=== PATIENT | male | born 1940 | race Caucasian/White ===

== ENCOUNTER 2018-07-21 19:42 | Emergency (ER) | payer MEDICARE, OTHER ==
[~2018-07-21] VITALS: Ht 180.3 cm; Wt 79.4 kg
[2018-07-21] MEDS ORDERED: CALCIUM 500 +1 EAC5 PO (19:50)
[2018-07-21] MEDS ORDERED: ASPIR 8181 MG PO (19:50)
[2018-07-21] MEDS ORDERED: FISH OIL 1,001000 M2 PO (19:50)
[2018-07-21] MEDS ORDERED: UNICOMPLEX M TA1 TA1 PO (19:51)
[2018-07-21 21:03] VITALS: BP 145/77
== END 2018-07-21 21:03 | disposition home or self-care (01) ==
LOC: M.ERS 19:42
DX: R04.0 Epistaxis (principal); Z98.890 Other specified postprocedural states

== ENCOUNTER 2018-07-25 08:29 | Emergency (ER) | payer MEDICARE, OTHER ==
[~2018-07-25] VITALS: Ht 180.3 cm; Wt 79.4 kg
[~2018-07-25 08:29] MED LIST: ASPIR 8181 MG PO; CALCIUM 500 +1 EAC5 PO; FISH OIL 1,001000 M2 PO; UNICOMPLEX M TA1 TA1 PO
[2018-07-25 08:46] VITALS: BP 144/99
== END 2018-07-25 09:26 | disposition home or self-care (01) ==
LOC: M.ERS 08:29
DX: R04.0 Epistaxis (principal); Z98.890 Other specified postprocedural states

== ENCOUNTER 2019-09-06 16:49 | Inpatient (IN) | payer MEDICARE, OTHER ==
[~2019-09-06] VITALS: Ht 180.3 cm; Wt 77.6 kg
[2019-09-06 16:50] VITALS: BP 145/77
[2019-09-06 17:29] LABS: HEMATOCRIT 42.1 % (42.0-52.0); HEMOGLOBIN 14.1 gm/dL (14.0-18.0); MCH 29.6 pg (26.0-34.0); MCHC 33.4 g/dL (28.0-37.0); MCV 88.4 fL (80.0-100.0); MPV 8.4 fl. (7.2-11.1); NUCLEATED RBCS 0 /100WBC; PLATELET COUNT* 194 thou/uL (150-400); RBC 4.76 mil/uL (4.50-6.00); RDW-CV 12.8 % (10.5-14.5); WBC 9.2 thou/uL (4.0-11.0)
[2019-09-06 17:42] LABS: CALCIUM 8.4 mg/dL (8.5-10.1); POTASSIUM 4.1 mmol/L (3.5-5.1)
[2019-09-06 17:43] LABS: APTT 25.5 Seconds (25.0-31.3)
[2019-09-06 17:53] LABS: ALBUMIN 3.4 g/dL (3.4-5.0); TOTAL BILIRUBIN 0.4 mg/dL (<0.1-1.0)
[2019-09-06 18:01] LABS: ABSOLUTE MONOCYTES 0.7 thou/uL (0.0-1.2); ABSOLUTE NEUTROPHILS 7.5 thou/uL (1.6-8.1)
[2019-09-06 18:04] LABS: CLUMPED PLTS RARE; PLATELET ESTIMATE ADEQUATE
[2019-09-06 19:55] VITALS: BP 148/78
[2019-09-06 20:50] VITALS: BP 132/79
[2019-09-06 20:59] LABS: URINE BILIRUBIN NEGATIVE (Negative); URINE BLOOD NEGATIVE (Negative); URINE CLARITY CLEAR; URINE COLOR YELLOW; URINE GLUCOSE-RANDOM NEGATIVE (Negative); URINE KETONES TRACE (Negative); URINE LEUKOCYTES-REFLEX NEGATIVE (Negative); URINE NITRITE-REFLEX NEGATIVE (Negative); URINE PROTEIN NEGATIVE (Negative); URINE SPECIFIC GRAVITY 1.015 (1.005-1.030); URINE UROBILINOGEN 0.2 E.U./dl (0.2-1.0)
[2019-09-07] VITALS (9 sets, daily range): BP systolic 137–153; BP diastolic 71–87
[2019-09-07 04:35] LABS: CHOLESTEROL 196 mg/dL (<200); HDL CHOLESTEROL 59 mg/dL (>40); LDL CHOLESTEROL 129 mg/dL (<100); TC:HDL 3.3 Ratio (Not establshd); TRIGLYCERIDE 43 mg/dL (<150); VLDL 9 mg/dL (<40)
[2019-09-07 04:38] LABS: SERUM ASSESSMENT CLEAR
--- NOTE | 2019-09-07 07:21 | NUR ---
RECEIVED REPORT FROM RESHIPPING CLERK GERALDINE AT 1950. PT ARRIVED TO UNIT AT 2019. NURSING ASSESSMENT COMPLETED AT START OF SHIFT. PT C/O DIZZINESS. SR WITH 1D ON BACK ORDER CLERK. HIGH FALL PRECAUTIONS IN PLACE. DR. MCGOWAN NOTIFIED OF CTA HEAD RESULTS. NEW ORDERS RECEIVED AT 2158. HOURLY ROUNDING COMPLETED. CALL LIGHT WITHIN REACH.
--- NOTE | 2019-09-07 09:56 | NUR ---
4052 ASSUMED CARE OF PATIENT. PLEASE SEE DOCUMENTED ASSESSMENT. PT DENIES HEADACHE BUT ADMITS TO DIZZINESS.ORIENTED AND USING CALL LIGHT
--- NOTE | 2019-09-07 10:38 | NUR ---
CM ASSESSMENT: VISITED WITH PT AND HIS FAMILY IN ROOM. PT LIVES AT HOME WITH HIS STEF AND HIS SON. PT IS INDEPENDENT WITH ALL ADLS AND DRIVES. HE DOES NOT USE ANY DME. DENIES ANY SYMPTOMS EXCEPT DIZZINESS.WILL CONTINUE TO FOLLOW
--- NOTE | 2019-09-07 17:55 | NUR ---
PATIENT IS PROGRESSING TOWARDS GOALS. LESS DIZZINESS THE SHIFT HAS PROGRESSED AND APPETITE IMPROVING. WORKED WITH THERAPIES AND SEEN BY NEURO. NIH SCORE CHARTED. VSS. FAMILY HAS VISITED.
[2019-09-07 23:10] LABS: GLYCOHEMOGLOBIN (HGB A1C) 5.4 % (4.8-5.6)
[2019-09-08] VITALS: BP 132/78
[2019-09-08 03:30] VITALS: BP 147/90
[2019-09-08 04:57] LABS: ABSOLUTE LYMPHOCYTES 1.3 thou/uL (0.8-5.3); ABSOLUTE MONOCYTES 0.7 thou/uL (0.0-1.2); ABSOLUTE NEUTROPHILS 5.6 thou/uL (1.6-8.1); BASOPHILS 0.3 %; EOSINOPHILS 0.5 %; HEMATOCRIT 43.3 % (42.0-52.0); HEMOGLOBIN 14.5 gm/dL (14.0-18.0); LYMPHOCYTES 16.7 %; MCH 29.7 pg (26.0-34.0); MCHC 33.5 g/dL (28.0-37.0); MCV 88.6 fL (80.0-100.0); MPV 8.5 fl. (7.2-11.1); NUCLEATED RBCS 0 /100WBC; PLATELET COUNT* 186 thou/uL (150-400); POLYS 73.5 %; RBC 4.89 mil/uL (4.50-6.00); RDW-CV 12.9 % (10.5-14.5); WBC 7.6 thou/uL (4.0-11.0)
[2019-09-08 05:08] LABS: CALCIUM 8.5 mg/dL (8.5-10.1); CREATININE 0.8 mg/dL (0.6-1.3); POTASSIUM 3.6 mmol/L (3.5-5.1)
--- NOTE | 2019-09-08 06:55 | NUR ---
ASSUMED PT CARE AT 1930. NURSING ASSESSMENT COMPLETED AT START OF SHIFT. PT VOICED NO CONCERNS THIS SHIFT. CONTINUES TO C/O DIZZYNESS. PRN MECLIZINE ADMINSITERED. SEE EMAR FOR DOCUMENTATION. HOURLY ROUNDING COMPLETED. HIGH FALL PRECAUTIONS IN PLACE. CALL LIGHT WITHIN REACH.
[2019-09-08 08:00] VITALS: BP 137/79
[2019-09-08 12:07] VITALS: BP 135/85
--- NOTE | 2019-09-08 12:35 | NUR ---
ASSUMED CARE OF PATIENT THIS AM AT 0730. PATIENT IS ALERT AND ORIENTED X 4. HE DENIES PAIN. HE SAYS THAT HIS ONLY COMPLAINT IS HIS CONTINUED DIZZINESS. HE IS TAKING HIS DIET WELL. 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 HE HAS BEEN ASSISTED WITH ADLS THROUGHOUT THE DAY. PT IN TO WORK WITH PATIENT. WILL CONTINUE TO MAINTAIN PATIENT SAFETY.
[2019-09-08 16:01] VITALS: BP 130/78
[2019-09-08 20:00] VITALS: BP 121/77
[2019-09-09] VITALS: BP 137/87
--- NOTE | 2019-09-09 06:00 | NUR ---
ASSUMED PT CARE AT 1915. NURSING ASSESSMENT COMPLETED AT START OF SHIFT. PT VOICED NO CONCERNS THIS SHIFT. HOURLY ROUNDING COMPLETED. HIGH FALL PRECAUTIONS IN PLACE. CALL LIGHT WITHIN REACH.
[2019-09-09 08:00] VITALS: BP 139/73
--- NOTE | 2019-09-09 13:24 | NUR ---
APPROVED BY DEMOND AT [facility] FOR [place]. ODIL[place] ([facility]) NOTIFIED. FAXED FACESHEET & ORDER TO PROVIDER [facility] AT [phone]. JOSE UPDATED.
--- NOTE | 2019-09-09 13:52 | NUR ---
ASSUMED CARE OF PATIENT THIS AM AT 0730. PATIENT IS ALERT AND ORIENTED X 4. HE DENIES PAIN. PATIENT C/O SOME CONTINUED DIZZINESS. PT IN TO PERFORM THERAPY. IN TO ROUNDD PATIENT TO DISCHARGE TODAY. WALKER PROVIDED FROM PT.
[2019-09-09 14:09] VITALS: BP 139/73
[2019-09-09 14:19] VITALS: BP 139/73
--- NOTE | 2019-09-12 13:55 | EKG ---
[place] [address] ELECTROCARDIOGRAM REPORT Name: STIVEN CARABALLO Room: [address] IN M.R.#: [id number] Admission: 09/06/19 Attend Phys: Elizabeth Brown Discharge: 09/09/19 Date of : 36 Date of Service: 09/06/19 1720 Report #: [id number] THIS REPORT FOR: cc: XOCHITL - [facility] family physician/PCP FAM - No family physician/PCP Manuel Araya MD [facility] ~ THIS REPORT FOR: //name// [facility] ED Test Date: 2019-09-06 Test Time: 17:20:12 Pat Name: STIVEN CARABALLO Department: Room: [facility] Gender: M Data [employer] Technician: : 1940 Requested By: Michael Ojeda Order Number: [id number] MD: Manuel Araya Measurements Intervals [place] Rate: 74 P: -44 WV: 247 QRS: 34 QRSD: 121 T: 44 QT: 390 QTc: 433 Interpretive Statements Sinus rhythm Atrial premature complex Prolonged WV interval IVCD, consider atypical RBBB No previous ECG available for comparison Electronically Signed On 09-07-2019 10:41:53 [employer] by Manuel Araya [email or web address] <ELECTRONICALLY SIGNED> By: Manuel Araya MD, [facility] 09/07/19 1041 1720 1720 Manuel Araya MD, [facility] /EPI
== END 2019-09-09 14:35 | disposition home or self-care (01) | DRG 149 ==
LOC: M.ERS 16:49 → M.TBA-ER 18:18 → M.2W 18:18
PROVIDERS: Emergency Medicine Emergency Medical Services; Internal Medicine; ADMIT Internal Medicine
DX: H81.10 Benign paroxysmal vertigo, unspecified ear (principal); H55.00 Unspecified nystagmus; Z79.82 Long term (current) use of aspirin; Z79.899 Other long term (current) drug therapy